=== PATIENT | female | born 1985 | race Hispanic/Latino ===

== ENCOUNTER 2024-09-12 07:45 | Emergency (ER) | payer SELFPAY ==
[2024-09-12 07:35] VITALS: BP 118/84; PULSE 104; RESP 16; TEMP 36.8; O2SAT 99
--- NOTE | 2024-09-12 08:19 | PC.NURSE ---
PT states does not know how tall she is.
[2024-09-12 08:20] LABS: BEDSIDEPREGUCG Negative (Negative)
--- NOTE | 2024-09-12 08:23 | ED.GENADULT ---
HPI - General Adult General Chief complaint: Psychiatric Symptoms Stated complaint: si History of Present Illness HPI narrative: This is a 38-year-old Tuvaluan-speaking female presenting for possible suicidal ideation. Patient says she was walking along a bridge over the [facility] with boyfriend when she stops to think and catch her breath. A transit police officer asked him what was going on. The transit police officer did not speak Tu[place]uan. Please also wanted her come to the hospital to be evaluated. Patient says that she does not want to harm herself. She has no history of suicidal ideation. No formal diagnosis of depression or anxiety. Patient and her boyfriend are from [place]. There car got towed yesterday and they are working on getting their car back. Patient is denying any physical complaints. Related Data Allergies Allergy/AdvReac Type Severity Reaction Status Date / Time No Known Allergies Allergy Verified 09/12/24 08:19 [facility] Social History Social History Substance use type: does not use Exam Narrative: APPEARANCE: No apparent distress. Head: atraumatic. EYES: EOMI, NOSE: Atraumatic NECK: Trachea midline RESPIRATORY: No increased rate of breathing clear to auscultation CARDIOVASCULAR: RRR, no peripheral edema ABDOMINAL: Non-distended nontender MUSCULOSKELETAl: No obvious deformities NEURO: Alert. Moving 4/4 extremities SKIN:: Warm, dry. Normal color PSYCHIATRIC: Normal affect Course Vital Signs Vital signs: Vital Signs Temperature 98.3 F 09/12/24 07:35 Pulse Rate 104 H 09/12/24 07:35 Respiratory Rate 16 09/12/24 07:35 Blood Pressure 118/84 09/12/24 07:35 Pulse Oximetry 99 09/12/24 07:35 Oxygen Delivery Room Air 09/12/24 07:35 Temperature 98.3 F 09/12/24 07:35 Pulse Rate 104 H 09/12/24 07:35 Respiratory Rate 16 09/12/24 07:35 Blood Pressure 118/84 09/12/24 07:35 Pulse Oximetry 99 09/12/24 07:35 Oxygen Delivery Room Air 09/12/24 07:35 Medical Decision Making MDM Narrative Medical decision making narrative: -Course: 38-year-old female presenting for possible suicidal ideation. Patient denies any sort of suicidality or intention to jump during my interview. No history of psychiatric illness or hospitalizations. Patient's boyfriend arrived and was able to provide any back story including that they had had car towed yesterday and they are working on getting back is it contains all of their earthly possessions . After speaking with them at length it is unclear why she was brought to hospital by police. She said that the transit police officer did not speak [place] which is her main language. She did not endorse suicidality then or now is really denying any sort of complaint or issue. There would like to leave as there was a police officers willing to drive him to their impounded cars they can get the belongings back. The patient does not want to speak to crisis team. I see no reason to hold her against her will at this time. Screening lab work showed anemia. Patient says that she has a history of heavy periods and meds been on the iron in past but has not been taking it recently. She will be given a prescription. She also has urinary tract infection and has dysuria symptoms. She will be given a prescription for Keflex. -DDX includes but is not limited to: Depression, suicidal ideation, language barrier Vital Signs Vital Signs: Vital Signs Temperature 98.3 F 09/12/24 07:35 Pulse Rate 104 H 09/12/24 07:35 Respiratory Rate 16 09/12/24 07:35 Blood Pressure 118/84 09/12/24 07:35 Pulse Oximetry 99 09/12/24 07:35 Oxygen Delivery Room Air 09/12/24 07:35 Temperature 98.3 F 09/12/24 07:35 Pulse Rate 104 H 09/12/24 07:35 Respiratory Rate 16 09/12/24 07:35 Blood Pressure 118/84 09/12/24 07:35 Pulse Oximetry 99 09/12/24 07:35 Oxygen Delivery Room Air 09/12/24 07:35 Lab Data 09/12/24 08:04 09/12/24 08:04 Labs: Lab Results 09/12/24 09/12/24 Range/Units 07:55 08:04 WBC 9.2 (4.5-10.0) K/mm3 RBC 4.39 (4.2-5.4) M/mm3 Hgb 8.2 L (12.0-15.0) g/dL Hct 29.3 L (37.0-47.0) % MCV 66.7 L (80-100) fl MCH 18.7 L (26-34) pg MCHC 28.0 L (32-36) g/dl RDW 17.4 H (11.5-14.5) % Plt Count 398 H (150-375) k/mm3 MPV 9.5 (7.4-10.4) fl Immature Gran % (Auto) 0.4 (0-0.5) % Neut % (Auto) 67.0 (45.5-73.1) % Lymph % (Auto) 26.8 (18.3-44.2) % Coke % (Auto) 4.3 (2.6-8.5) % Eos % (Auto) 0.9 (0-4.4) % Baso % (Auto) 0.6 (0.2-1.2) % Lymph # (Auto) 2.48 (0.9-3.2) K/mm3 Coke # (Auto) 0.4 (0.1-0.6) K/mm3 Eos # (Auto) 0.1 (0-0.3) K/mm3 Baso # (Auto) 0.1 (0.0-0.1) K/mm3 Abs Immat Gran (auto) 0.04 H (0.00-0.031) K/mm3 Absolute Neuts (auto) 6.2 (1.3-6.7) K/mm3 Absolute Nucleated RBC 0.000 (0.0-0.012) K/mm3 Band Neutrophils % Not Reportable Nucleated RBC % 0.0 (0.0-0.2) % Platelet Estimate Adequate (Adequate) Hypochromasia 1+ Microcytosis 1+ (NORMAL) Target Cells 1+ Schistocytes None seen Sodium 143 (137-145) mmol/L Potassium 3.8 (3.4-5.0) mmol/L Chloride 108 H (98-107) mmol/L Carbon Dioxide 23 (22-30) mmol/L Anion Gap 12 (4-12) mmol/L BUN 20 H (7-17) mg/dL Creatinine 0.56 L (0.7-1.0) mg/dL Estim Creat Clear Calc Not Reportable Estimated GFR > 60 (59 - ) Glucose 103 (65-110) mg/dL Calcium 8.8 (8.4-10.2) mg/dL Total Bilirubin 0.2 (0.2-1.3) mg/dL AST 25 (14-36) U/L ALT 8 (6-35) U/L Alkaline Phosphatase 80 (38-126) U/L Total Protein 8.3 H (6.3-8.2) g/dL Albumin 4.5 (3.5-5.1) g/dL TSH 0.465 (0.465-4.680) uIU/mL Urine Color Yellow (Yellow) Urine Appearance Cloudy H (Clear) Urine pH 6.0 (5.0-9.0) Ur Specific [place] 1.025 (1.001-1.035) Urine Protein 1+ H (Negative) mg/dL Urine Glucose (UA) Negative (Negative) mg/dL Urine Ketones Trace H (Negative) mg/dL Ur Blood (Man) 1+ H (Negative) Urine Nitrate Negative (Negative) Urine Bilirubin Negative (Negative) Urine Urobilinogen 1.0 (<2.0) mg/dL Leukocyte Esterase Rfl 2+ H (Negative) FREDY/UL Urine RBC 11-20 H (0-2) /hpf Urine WBC >100 H (0-3) /hpf Ur Squamous Epith Cells Moderate (Few) /hpf Urine Bacteria 1+ H /hpf Urine Casts 3-5 POC Urine HCG, Qual Negative (Negative) Salicylates < 1.0 L (2-20) mg/dL Urine Opiates Screen Pending Urine Methadone Screen Pending Acetaminophen < 10 L (10-30) ug/mL Ur Barbiturates Screen Pending Ur Phencyclidine Scrn Pending Ur Amphetamine Screen Pending U Benzodiazepines Scrn Pending Urine Cocaine Screen Pending U Cannabinoids Screen Pending Ethyl Alcohol < 10 (<10) mg/dL Influenza A (RT-PCR) Pending Influenza B (RT-PCR) Pending RSV (RT-PCR) Pending SARS-CoV-2 RNA (RT-PCR) Pending Discharge Plan Discharge Clinical Impression: UTI (urinary tract infection), Anemia Patient Disposition: Home Condition: Stable Instructions: Antibiotic Form, Dysuria (ED), Anemia (ED) Additional Instructions: You were seen in the emergency department for possible suicidal ideation. You have denied any thoughts of harming herself or anyone else and this appears to be a miscommunication with the transit police officer. You were found to be anemic and have a UTI. Please take iron supplementation in the antibiotics prescribed. Please follow-up with your primary care physician in the next 3-5 days to ensure symptoms are improving. If you develop thought thoughts of harming self or others please return to ED for re-evaluation. Patient Language: Tu[place]uan Prescriptions: New cephalexin 500 mg capsule 500 mg PO Q12H Qty: 10 0RF ferrous sulfate [Feosol] 325 mg (65 mg iron) tablet 325 mg PO DAILY Qty: 90 0RF Follow-up/Referrals: UNKNOWN,DOCTOR [Primary Care Provider] -
[2024-09-12 08:26] LABS: Basophils Absolute Auto 0.1 K/mm3 (0.0-0.1); Basophils Percent Auto 0.6 % (0.2-1.2); Eosinophils Absolute Auto 0.1 K/mm3 (0-0.3); Eosinophils Percent Auto 0.9 % (0-4.4); Hematocrit 29.3 % (37.0-47.0); Hemoglobin 8.2 g/dL (12.0-15.0); Immature Granulocyte Absolute 0.04 K/mm3 (0.00-0.031); Immature Granulocyte Percent A 0.4 % (0-0.5); Lymphocytes Absolute Auto 2.48 K/mm3 (0.9-3.2); Lymphocytes Percent Auto 26.8 % (18.3-44.2); Mean Corpuscular Hemoglobin 18.7 pg (26-34); Mean Corpuscular Volume 66.7 fl (80-100); Mean Platelet Volume 9.5 fl (7.4-10.4); Monocytes Absolute Auto 0.4 K/mm3 (0.1-0.6); Monocytes Percent Auto 4.3 % (2.6-8.5); Neutrophils Absolute Auto 6.2 K/mm3 (1.3-6.7); Platelet Count Result 398 k/mm3 (150-375); Red Blood Count 4.39 M/mm3 (4.2-5.4); Red Cell Distribution Width 17.4 % (11.5-14.5); White Blood Count 9.2 K/mm3 (4.5-10.0)
[2024-09-12 08:30] LABS: Add Urine Microscopic? YES; Appearance Urine Cloudy (Clear); Bacteria Urine 1+ /hpf; Bilirubin Urine Negative (Negative); Blood Urine 1+ (Negative); Color Urine Yellow (Yellow); Glucose Urine UA Negative (Negative); Ketones Urine Trace mg/dL (Negative); Leukocyte Esterase Ur 2+ LEU/UL (Negative); Nitrate Urine Negative (Negative); Protein Urine 1+ mg/dL (Negative); Specific Grav Ur 1.025 (1.001-1.035); Squamous Epithelial Cell Urine Moderate /hpf (Few); WBC Urine >100 /hpf (0-3)
[2024-09-12 08:33] LABS: Alanine Aminotransferase 8 U/L (6-35); Albumin Level 4.5 g/dL (3.5-5.1); Alkaline Phosphatase 80 U/L (38-126); Anion Gap 12 mmol/L (4-12); Aspartate Amino Transferase 25 U/L (14-36); Bilirubin,Total 0.2 mg/dL (0.2-1.3); Blood Urea Nitrogen 20 mg/dL (7-17); Calcium 8.8 mg/dL (8.4-10.2); Carbon Dioxide 23 mmol/L (22-30); Chloride 108 mmol/L (98-107); Estimated Glomerular Filt Rate > 60; Glucose 103 mg/dL (65-110); Potassium 3.8 mmol/L (3.4-5.0); Sodium 143 mmol/L (137-145); Total Protein 8.3 g/dL (6.3-8.2)
[2024-09-12 08:48] LABS: Acetaminophen < 10 ug/mL (10-30); Ethanol < 10 mg/dL (<10); Salicylate < 1.0 mg/dL (2-20)
[2024-09-12 09:04] LABS: Hypochromasia 1+; Microcytosis 1+ (NORMAL); Platelet Estimate Adequate (Adequate); Thyroid Stimulating Hormone 0.465 uIU/mL (0.465-4.680)
[2024-09-12 09:05] LABS: Schistocytes None Seen; Target Cells 1+
--- NOTE | 2024-09-12 09:19 | PC.NURSE ---
Pt given belongings and clothing per MD
[2024-09-12 09:24] LABS: Influenza A QL RT-PCR Negative (Negative); Influenza B QL RT-PCR Negative (Negative); RSV RNA, RT-PCR Negative (Negative); SARS-CoV-2 RNA PCR Negative (Negative)
[2024-09-12 10:15] LABS: Barbiturate Screen Urine Negative (Negative); Benzodiazepines Screen Urine Negative (Negative); Cannabinoid Screen Urine Negative (Negative); Cocaine Screen Urine Negative (Negative); Methadone Screen Urine Negative (Negative); Opiate Screen Urine Negative (Negative); Phencyclidine Screen Urine Negative (Negative)
[2024-09-12 10:48] LABS: Amphetamine Screen Urine Positive (Negative)
== END 2024-09-12 09:52 | disposition home or self-care (01) ==
PROVIDERS: Emergency Provider Emergency Medicine
DX: N39.0 Urinary tract infection, site not specified (principal); D64.9 Anemia, unspecified; Z11.59 Encounter for screening for other viral diseases
CPT/HCPCS: 36415; 80053; 80143; 80179; 80307; 81001; 81025; 82077; 84443; 85025; 87637; 99283